=== PATIENT | male | born 1985 | race Caucasian/White ===

== ENCOUNTER 2016-04-11 17:25 | Emergency (ER) | payer OTHER ==
[~2016-04-11] VITALS: Ht 190.5 cm; Wt 106.6 kg
[~2016-04-11 17:25] MED LIST: ABILIFY20 M1 PO; BACTRIM DS 8001 TAB PO; DIVALPROEX SOD500 M3 PO; PROPRANOLOL HCL20 M1 PO; TRAZODONE HCL100 M1 PO
--- NOTE | 2016-04-11 18:47 | ED UPPER/LOWER EXTREMITY COMPL ---
History of Present Illness General Chief Complaint: Lower Extremity Problems Stated Complaint: RIGHT LEG PAIN Source: patient, old records Exam Limitations: no limitations Vital Signs & Intake/Output Vital Signs & Intake/Output Vital Signs Date Time Temp Pulse Resp B/P Pulse O2 O2 Flow FiO2 Ox Delivery Rate 04/11 1941 96.5 87 18 128/58 98 Room Air 04/11 1731 97.8 104 16 157/80 99 Room Air ED Intake and Output 04/12 0000 04/11 1200 Intake Total Output Total Balance Patient 235 lb Weight Allergies Coded Allergies: haloperidol (From HALDOL) (AKATHESIA 05/08/15) quetiapine (From SEROQUEL) (RASH 05/08/15) Reconcile Medications Aripiprazole (Abilify) 20 MG TABLET 1 TAB PO DAILY MENTAL HEALTH (Reported) Divalproex Sodium (Divalproex Sodium ER) 500 MG TAB.ER.24H 1 TAB PO BID MENTAL HEALTH (Reported) PROPRANOLOL HCL (Propranolol HCl) 20 MG TABLET 1 TAB PO AD UNKNOWN (Reported) Sulfamethoxazole/Trimethopri (Bactrim Ds 800 MG-160 MG) 1 TAB TAB 1 TAB PO BID INFECTINO Sulfamethoxazole/Trimethopri (Bactrim Ds 800 MG-160 MG) 1 TAB TAB 1 TAB PO BID FOLLICULITIS TRAZODONE HCL (Trazodone HCl) 100 MG TABLET 1 TAB PO AD UNKNOWN (Reported) Triage Note: C/O RIGHT KNEE PAIN SINCE YESTERDAY AFTER PLAYING FOOTBALL. PT STATES A PLAYER FELL ON HIS RIGHT LEG. Triage Nurses Notes Reviewed? yes Onset: Abrupt Duration: day(s): (2), constant Timing: recent history Severity: mild, moderate Severity Numbers: 4 Pain/Injury Location: Right: Knee. Method of Injury: sports injury No Modifying Factors: none Associated Symptoms: swelling HPI: 30-year-old male presents to emergency room complaining of anterior right knee pain since yesterday. He states he is going football when another player collided into him sustaining injury to the knee. It is aching constant nonradiating. He states he has been able to bear weight however with pain. He took ibuprofen with improvement of his swelling. He denies any back hip foot or ankle pain there is no other injury or no other modifying factors or associated symptoms otherwise (ARASELI THRASHER,NICOLÁS) Past History Travel History Traveled to [place] past 21 day No Medical History Any Pertinent Medical History? 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 No (NICOLÁS GRANADOS) Review of Systems Review of Systems Constitutional: Reports: see HPI. All Other Systems: Reviewed and Negative Comments Review of systems: See HPI, All other systems negative. Constitutional, no chills no fever, no malaise HEENT: No visual changes no sore throat no congestion Cardiovascular: No chest pain , no palpitation , Skin, no rashes, no change in skin Respiratory: No dyspnea no cough no sputum GI: No nausea no vomiting, no diarrhea : No dysuria Muscle skeletal: joint pain, no joint swelling, no back pain, no neck pain, Neurologic: No numbness , no headache Psych: No stress Heme/endocrine: No bruising no bleeding Immunology: No lymphadenopathy (NICOLÁS GRANADOS) Physical Exam Physical Exam General Appearance: well developed/nourished, no apparent distress, alert, awake , comfortable Comments: Well-developed well-nourished patient in no apparent distress. HEENT: Atraumatic, extraocular motion intact Neck: Supple, FROM, Back: FROM Cardiovascular: Regular rate and rhythms no murmurs rubs Respiratory: No respiratory distress. Patient speaking in full complete sentences. Breath sounds clear to auscultation bilaterally: NO W/R/R Upper Extremities: full range of motion Hip/Pelvis: Atraumatic/Stable. FROM. No pain with pelvic compression Knee: Atraumatic/stable. FROM. No joint swelling, no effusion. No laxity. Negative mary/anterior drawer test. No pain with ROM Leg: Atraumatic. Nontender. No edema, 5 out of 5 strength in the lower extremity, normal dorsiflexion of great toe bilaterally, gross sensation is intact, patellar tendon reflex 2+ bilaterally. Ankle/Foot: Atraumatic/stable. Skin intact. FROM. No swelling, no effusion. No laxity on exam Pulses: Normal/equal DP/PT pulses bilaterally. Brisk cap refill Neuro: Alert and oriented x3 Skin: Warm & dry;No appreciable rash on exposed skin Psych: Mood affect normal, normal memory normal judgment. (NICOLÁS GRANADOS) Progress Differential Diagnosis: compartment syndrome, contusion, dislocation, fracture, sprain, tendon injury Plan of Care: Orders Procedure Date/time Status XRY-KNEE COMPLETE RIGHT 04/11 1849 Active Patient declining anterior pain when offered discussed with him his x-ray results need for rice Eliel wrap was applied advised continue with ibuprofen cleared for discharge with steady gait (NICOLÁS GRANADOS) Diagnostic Imaging: Viewed by Me: Radiology Read. Discussed w/RAD: Radiology Read. Radiology Impression: PATIENT: NICOLÁS CHAO PRESENT AGE: 30 PATIENT ACCOUNT NO: [id number] : 87 LOCATION: [facility] ORDERING PHYSICIAN: NICOLÁS THRASHER SERVICE DATE: 04/11/16-1849 EXAM TYPE: RAD - XRY- KNEE COMPLETE RIGHT EXAMINATION: XR KNEE, RIGHT CLINICAL INFORMATION: Football injury. COMPARISON: MRI of the right knee on November 2009. X-ray of the right knee on October 2009. TECHNIQUE: Four views of the right knee. FINDINGS: Bones and soft tissues are normal. No fracture. Alignment is anatomic. Joint spaces are well maintained. There is evidence of a suprapatellar joint effusion. No abnormal soft tissue calcification. IMPRESSION: Exam is positive for a joint effusion. No fracture. 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 <Electronically signed in Other Vendor System> SIGNED BY: ALEJA LORD MD 04/11/161927 (NICOLÁS GRANADOS) Departure Departure Time of Disposition: 1930 Disposition: HOME OR SELF CARE Condition: Stable Clinical Impression Primary Impression: Knee sprain Referrals: PRAFUL LEWIS APRN (PCP/Family) Additional Instructions: Rest ice Tylenol Motrin Eliel wrap as discussed follow-up with her primary care physician and return with any concerns Departure Forms: Customer Survey General Discharge Information (NICOLÁS GRANADOS) PA/OPTICAL DISPENSER Co-Sign Statement Statement: ED Attending supervision documentation- [] I saw and evaluated the patient. I have also reviewed all the pertinent lab results and diagnostic results. I agree with the findings and the plan of care as documented in the PA's/OPTICAL DISPENSER's documentation. [X] I have reviewed the ED Record and agree with the PA's/OPTICAL DISPENSER's documentation. [] Additions or exceptions (if any) to the PAs/OPTICAL DISPENSER's note and plan are summarized below: [] (GERMANIA IQBAL,STEPHANIE Palencia)
--- NOTE | 2016-04-11 19:28 | RADIOLOGY REPORT ---
EXAMINATION: XR KNEE, RIGHT CLINICAL INFORMATION: Football injury. COMPARISON: MRI of the right knee on November 2009. X-ray of the right knee on October 2009. TECHNIQUE: Four views of the right knee. FINDINGS: Bones and soft tissues are normal. No fracture. Alignment is anatomic. Joint spaces are well maintained. There is evidence of a suprapatellar joint effusion. No abnormal soft tissue calcification. IMPRESSION: Exam is positive for a joint effusion. No fracture.
[2016-04-11 19:41] VITALS: BP 128/58
== END 2016-04-11 19:50 ==
LOC: ERH 17:25
DX: S83.91XA Sprain of unspecified site of right knee, initial encounter (principal); W03.XXXA Other fall on same level due to collision with another person, initial encounter; Y93.61 Activity, american tackle football
CPT/HCPCS: 73562-RT

== ENCOUNTER 2016-07-06 12:41 | Emergency (ER) | payer OTHER ==
[~2016-07-06] VITALS: Ht 182.9 cm; Wt 99.8 kg
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
[2016-07-06 14:41] LABS: ABSOLUTE BASOPHIL COUNT 0 /CUMM (0.0-0.2); ABSOLUTE EOSINOPHIL COUNT 0 /CUMM (0.0-0.7); ABSOLUTE GRANULOCYTE CT 5.9 /CUMM (1.4-6.5); ABSOLUTE LYMPH COUNT 0.8 /CUMM (1.2-3.4); ABSOLUTE MONOCYTE COUNT 0.4 /CUMM (0.10-0.60); BASOPHIL % 0.2 % (0.0-2.0); EOSINOPHIL % 0.1 % (0-5); GRANULOCYTE % 82.7 % (42.2-75.2); HEMATOCRIT 42.9 % (42-52); MEAN CORPUSCULAR HGB CONC 33.3 G/DL (33.0-37.0); MEAN CORPUSCULAR VOLUME 84.1 FL (80.0-94.0); MEAN PLATELET VOLUME 9.1 FL (7.4-10.4); PLATELET COUNT 164 /CUMM (130-400); RBC DISTRIBUTION WIDTH 13.8 % (11.5-14.5); WHITE BLOOD CELL COUNT 7.1 /CUMM (4.8-10.8)
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
[2016-07-07] MEDS ORDERED: BENZTROPINE MESY1 M1 PO (14:41)
[2016-07-07] MEDS ORDERED: LATUDA60 M1 PO (14:41)
[2016-07-07] MEDS ORDERED: CHLORPROMAZINE200 M1 PO (14:41)
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
--- NOTE | 2016-07-10 14:54 | ED PSYCHIATRIST/APRN CONSULT ---
Psychiatrist/CIGARETTE ROLLER ED Consult Assessment and Plan: ED psychiatric observation follow up note Met with Mr. Castillo along with crisis EVANS Chavez. He was in two point restraints. He denies any acute concerns including pain or difficulty breathing or moving. He denies auditory or visual hallucinations. I asked him if he is experiencing any medication side effects to which he reports "you all say I haven't been taking my meds but I am and you want me to stop smoking pot but that is my [place] peoples' medicine!!" He became moderately agitated, continuing "those meds have made me fat in the past. I used to have 6 pack abs, and then I got so fat and pimply and sick from them. Then I got 6 pack abs despite the meds !" Finally, he pointed to his urinal which was filled with yellow urine and says "when I wasn't on those meds my urine was clear. Now look at it! I'm sick!" Vitals reviewed and are wnl MSE: large, muscular CM supine in 2 point restraints on hospital bed. He is not acutely distressed. Breathing is regular. Speech initially monotonous with increased rate amount and volume as some time passed in conversation. Mood "fine ", affect intense, labile, TP loose, content with persecutory delusion. Denies SI/HI. Unable to participate in cognitive exam and I/J limited. A/P: Continues to evidence persecutory delusion that severely limit his ability to remain calm when engaged in interview. He is now compliant with oral medications. -Please increase his latuda to 60 mg daily and his thorazine to 200 mg BID as his blood pressure seems to be tolerating the addition of this medication. Can discontinue zyprexa. -Thorazine 100 mg PO appropriate for mild-moderate agitation, 50-100 mg IM appropriate for moderate-severe agitation, which can be redosed after 30 minutes. -safety measures such as restraint or PRN medication as dictated by clinical context -Will continue to attempt to arrange inpatient psychiatric hospitalization at a psychiatric facility appropriate for this Mr. Castillo
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
[2016-07-13 12:46] LABS: ABSOLUTE BASOPHIL COUNT 0 /CUMM (0.0-0.2); ABSOLUTE EOSINOPHIL COUNT 0 /CUMM (0.0-0.7); ABSOLUTE GRANULOCYTE CT 4.6 /CUMM (1.4-6.5); ABSOLUTE LYMPH COUNT 1.6 /CUMM (1.2-3.4); ABSOLUTE MONOCYTE COUNT 0.4 /CUMM (0.10-0.60); BASOPHIL % 0.3 % (0.0-2.0); EOSINOPHIL % 0.3 % (0-5); GRANULOCYTE % 69.1 % (42.2-75.2); HEMATOCRIT 47.5 % (42-52); MEAN CORPUSCULAR HGB 28.2 PG (27.0-31.0); MEAN CORPUSCULAR HGB CONC 33.8 G/DL (33.0-37.0); MEAN CORPUSCULAR VOLUME 83.3 FL (80.0-94.0); MEAN PLATELET VOLUME 9.1 FL (7.4-10.4); PLATELET COUNT 179 /CUMM (130-400); RBC DISTRIBUTION WIDTH 13.9 % (11.5-14.5); WHITE BLOOD CELL COUNT 6.7 /CUMM (4.8-10.8)
[2016-07-13 13:52] VITALS: BP 110/60
== END 2016-07-13 14:49 | disposition short-term general hospital (02) ==
LOC: ERH 12:41
PROVIDERS: Emergency Medicine
DX: F23 Brief psychotic disorder (principal); R45.1 Restlessness and agitation
CPT/HCPCS: 80307; 87389; 93005; 93010; 96372; 99291; G0463; G0480; J1200; J1630; J2060; J3490